=== PATIENT | male | born 1990 | race African-American/Black ===

== ENCOUNTER 2019-05-02 10:25 | Emergency (ER) | payer OTHER ==
[2019-05-02] MEDS ORDERED: Azithromycin 250 MG TAB ONE (10:50)
[2019-05-02] MEDS ORDERED: cefTRIAXone\\ROCEPHIN 1 GM VIAL ONE (10:50)
[2019-05-02] MEDS ORDERED: Lidocaine 1% PF 5 ML VIAL ONE (10:53)
== END 2019-05-02 11:08 | disposition home or self-care (01) ==
LOC: BURERS 10:25
DX: N34.2 Other urethritis (principal)
CPT/HCPCS: 87491; 87591; 96372; 99283; J0696; J2001